=== PATIENT | female | born 1990 | race Caucasian/White ===

== ENCOUNTER 2020-03-19 15:48 | Outpatient (CLI) | payer BC | END 2020-03-19 15:49 | disposition home or self-care (01) | LOC: CTENTCT 15:48 | PROVIDERS: ATTEND Student in an Organized Health Care Education/Training Program | DX: J34.2 Deviated nasal septum (principal) | CPT/HCPCS: 70486 ==

== ENCOUNTER 2021-04-16 09:09 | Outpatient (CLI) | payer BC | END 2021-04-16 09:10 | disposition home or self-care (01) | LOC: BICRAD 09:09 | PROVIDERS: ATTEND Internal Medicine | DX: M25.562 Pain in left knee (principal) ==

== ENCOUNTER 2021-04-28 06:27 | Day surgery (SDC) | payer BC ==
[2021-04-22 10:32] VITALS: BMI 25.4
[2021-04-28] MEDS ORDERED: AFRIN NASAL MIST 15 ML BOT ONE (06:44)
[2021-04-28] MEDS ORDERED: Bacitracin Zinc Ointment 30 gm TUBE ONE (06:44)
[2021-04-28] MEDS ORDERED: Lidocaine 1% w/Epinephrine 1:100K 20 ML VIAL ONE (06:44)
[2021-04-28] MEDS ORDERED: EPINEPHrine 1 MG/ML AMP ONE (06:44)
[2021-04-28] MEDS ORDERED: Fentanyl 250 MCG/5 ML VIAL ONE (06:53)
[2021-04-28] MEDS ORDERED: Dexmedetomidine 200 MCG/2 ML VIAL ONE (06:53)
[2021-04-28] MEDS ORDERED: Albuterol Sulfate HFA (OR ONLY) ONE (06:53)
[2021-04-28] MEDS ORDERED: Lidocaine 4% Topical Sol 50 ML BOT ONE (06:53)
[2021-04-28] MEDS ORDERED: Oxymetazoline HCl 0.05% (30 ML BOT) ONE (07:08)
[2021-04-28] MEDS ORDERED: Propofol 1,000 MG/100 ML VIAL IV ONE (07:23)
[2021-04-28] MEDS ORDERED: Midazolam HCl 2 mg/2 ml Vial ONE (07:40)
[2021-04-28] MEDS ORDERED: Acetaminophen 500 MG TAB ONE (07:41)
[2021-04-28 08:10] LABS: BHCG - Serum Negative (NEGATIVE); Pregs Control Background? CLEAR/WHITE (CLR/WHITE); Pregs Control Bar Appear? YES (CONTROL BAR)
[2021-04-28] MEDS ORDERED: Lidocaine 1% PF 5 ML VIAL ONE (08:19)
[2021-04-28] MEDS ORDERED: Rocuronium Bromide 10 MG/ML (10ML VIAL) ONE (08:19)
[2021-04-28] MEDS ORDERED: Ketorolac Tromethamine 30 MG/ML VIAL ONE (08:19)
[2021-04-28] MEDS ORDERED: Ondansetron PF 4 MG/2 ML Vial ONE (08:19)
[2021-04-28] MEDS ORDERED: PROPOFOL 200 MG/20 ML VIAL ONE (08:19)
[2021-04-28] MEDS ORDERED: Dexamethasone 20 MG/5 ML VIAL ONE (08:19)
[2021-04-28] MEDS ORDERED: ePHEDrine 50 MG/ML VIAL ONE (08:19)
[2021-04-28] MEDS ORDERED: Triamcinolone 40 MG/ML VIAL ONE (10:32)
[2021-04-28] MEDS ORDERED: Fentanyl 100 MCG/2 ML VIAL ONE (11:02)
[2021-04-28] MEDS ORDERED: HYDROcodone/Acetaminophen 5/325 mg Tablet ONE (12:06)
== END 2021-04-28 13:00 | disposition home or self-care (01) ==
LOC: SDC 06:27
PROVIDERS: ATTEND Student in an Organized Health Care Education/Training Program
PROC: 09QR4ZZ Repair Left Maxillary Sinus, Percutaneous Endoscopic Approach (ICD-10-PCS; principal; 2021-04-28)
PROC: 09SM0ZZ Reposition Nasal Septum, Open Approach (ICD-10-PCS; principal; 2021-04-28)
PROC: 09TL7ZZ Resection of Nasal Turbinate, Via Natural or Artificial Opening (ICD-10-PCS; principal; 2021-04-28)
PROC: 09Q Ear, Nose, Sinus, Repair (ICD-10-PCS; principal; 2021-04-28)
PROC: 09Q Ear, Nose, Sinus, Repair (ICD-10-PCS; principal; 2021-04-28)
PROC: 09BV8ZZ Excision of Left Ethmoid Sinus, Via Natural or Artificial Opening Endoscopic (ICD-10-PCS; principal; 2021-04-28)
PROC: 8E09XBZ Computer Assisted Procedure of Head and Neck Region (ICD-10-PCS; principal; 2021-04-28)
PROC: 09QT4ZZ Repair Left Frontal Sinus, Percutaneous Endoscopic Approach (ICD-10-PCS; principal; 2021-04-28)
PROC: 09QK0ZZ Repair Nasal Mucosa and Soft Tissue, Open Approach (ICD-10-PCS; principal; 2021-04-28)
PROC: 09QQ4ZZ Repair Right Maxillary Sinus, Percutaneous Endoscopic Approach (ICD-10-PCS; principal; 2021-04-28)
PROC: 09BU8ZZ Excision of Right Ethmoid Sinus, Via Natural or Artificial Opening Endoscopic (ICD-10-PCS; principal; 2021-04-28)
PROC: 09QS4ZZ Repair Right Frontal Sinus, Percutaneous Endoscopic Approach (ICD-10-PCS; principal; 2021-04-28)
DX: J32.9 Chronic sinusitis, unspecified (principal); J33.8 Other polyp of sinus; J34.2 Deviated nasal septum; J34.3 Hypertrophy of nasal turbinates; J34.89 Other specified disorders of nose and nasal sinuses; J45.909 Unspecified asthma, uncomplicated; Z79.2 Long term (current) use of antibiotics; Z79.52 Long term (current) use of systemic steroids; Z79.899 Other long term (current) drug therapy
CPT/HCPCS: 84703; 85014; C1726; J0171; J0690; J1100; J1885; J2250; J2405; J2704; J3010; J3301; J3490